=== PATIENT | male | born 1955 | race Caucasian/White ===

== ENCOUNTER 2016-11-25 17:18 | Emergency (ER) | payer MEDICAID, OTHER ==
[2016-11-25 17:31] VITALS: RESP 20
[2016-11-25] MEDS ORDERED: KETOROLAC 30 MG/1 ML SDV IM ONE (17:38)
--- NOTE | 2016-11-25 17:47 | EDPHY ---
H & P Time Seen by Provider: 11/25/16 17:26 HPI/ROS: HPI Back pain, sciatica. 61-year-old male by private vehicle. He complains of right and left-sided lower back pain with radiation down the posterior lateral aspect of his thighs ongoing for 3 weeks. She reports the right side is worse on the left side. He has a lidocaine patch over his right SI joint. He denies any history of fall or other traumatic event. He is asking for pain medication. He has had no bowel or bladder incontinence. No fever. No history of malignancy. He denies abdominal pain. He states that his lower extremities feels stiff and weak because of the pain when he is trying to walk. He tells me that he has an appointment to see his primary care physician at [facility] on Tuesday. He also states he started a new job and has a [employer] insurance plan which is supposed to start in the next 1-2 weeks. He is asking for narcotic pain medication. ROS: Constitutional: No fever, no chills. No weakness. Respiratory: No cough. No shortness of breath. Cardiac: No chest pain, no palpitations. Gastrointestinal: No abdominal pain, no vomiting, no diarrhea. Genitourinary: As above. Musculoskeletal: As above. No neck pain. No myalgias or arthralgias. Skin: No rashes. Neurological: As above. Past medical history: Cervical spine fusion and history of L4 disc herniation years ago. Social history: Nonsmoker. Denies alcohol. Here by himself. Physical Exam: General Appearance: Alert, mildly anxious. This patient is responding to questions appropriately and in full sentences. This patient appears well- hydrated and well-nourished. Eyes: Pupils equal and round no pallor or injection. No lid edema, erythema or injection. Back exam: No midline cervical, thoracic, lumbar tenderness on palpation. His motor sensory function is normal in all myotomes in dermatomes of the bilateral lower extremities. Extension and flexion motor testing of his feet are symmetrical and normal. His quadriceps strength and proximal thigh musculature is symmetrical and normal on exam. He has a negative same side and cross side straight leg raise test. Gastrointestinal: Abdomen is soft and nontender, no masses, bowel sounds normal. No focal tenderness at McBurney's point. No Victor sign. Neurological: Motor sensory function is grossly intact. Cranial nerves are normal. Gait is normal. Skin: Warm and dry, no rashes. Musculoskeletal: Neck is supple and nontender. Extremities are symmetrical. All joints range without pain or impingement. Psychiatric: No agitation. No depression. Database: EKG: Imaging: Procedures: Emergency department course: His vital signs were reviewed. He was tachycardic and moderately hypertensive in triage. He has no history of renal dysfunction or contraindications to NSAIDs. He is driving. He was given 60 mg of IM Toradol. 6:15 p.m., patient re-evaluated. He states he is feeling much better. His tachycardia has resolved on my exam. Repeat neurologic Assessment is nonfocal. He is dressed and sitting upright on the gurney. He is requesting discharge at this time. I offered him further observation in the emergency department but he declined. Plan for follow-up will be through [facility] or through his [place] primary care physician. I do not feel he requires emergent imaging at this time. However, I discussed red flags for him to be aware of. He feels comfortable going home. I will prescribe a short course of Vicodin, 10. As well as some Flexeril. Follow-up was reviewed with him thoroughly. Return to emergency department precautions discussed. All of his questions were answered. He was discharged from the emergency department in good condition. Differential Diagnosis: The differential diagnosis on this patient includes but is not limited to sacroiliac strain, sciatica. Epidural compression syndrome, acute radiculopathy , cauda equina syndrome, epidural abscess, AAA unlikely. This represents a partial list of diagnoses considered. These considerations are based on history , physical exam, past history, reassessment and diagnostic testing. Smoking Status: Current every day smoker Constitutional: Initial Vital Signs Temperature (C) 36.5 C 11/25/16 17:29 Heart Rate 111 H 11/25/16 17:29 Respiratory Rate 20 11/25/16 17:29 Blood Pressure 153/124 H 11/25/16 17:29 O2 Sat (%) 96 11/25/16 17:29 O2 Delivery Mode Room Air Allergies/Adverse Reactions: No Known Allergies Allergy (Unverified 11/25/16 17:29) Home Medications: Medication Instructions Recorded Miscellaneous Medical Supply [NO 10/06/12 HOME MEDS] Cyclobenzaprine [Flexeril 10 MG 10 mg PO TID #9 tab 07/27/17 (*)] Hydrocodone/APAP 5/325 [[place] 1 - 2 tab PO Q4-6PRN PRN #10 tab 11/25/16 5/325 (*)] Medical Decision Making - Data Points Medications Given: Discontinued Medications Ketorolac Tromethamine (Toradol) 60 mg IM EDNOW ONE Stop: 11/25/16 17:39 Last Admin: 11/25/16 17:46 Dose: 60 mg Departure - Departure Disposition: Home, Routine, Self-Care Clinical Impression: Back pain, Sciatica Condition: Good Instructions: Sciatica (ED) Additional Instructions: Read and follow provided instructions. Follow-up with your primary care physician as scheduled on Tuesday. I have also given you a referral to [facility] for follow-up. They are nonsurgical back pain specialists. Take medication as prescribed only. Ibuprofen dosin mg every 6 hours with meals for the next 3 days only. You can start taking ibuprofen again tomorrow morning. Do not take until that time. [place]/Percocet dosin-2 every 4-6 [address] for [address] Do not drive on this medication. Return to the emergency department immediately for worsening pain, loss of sensation or weakness in your lower extremities, bowel or bladder incontinence, abdominal pain, fever or other serious concerns. Referrals: Abraham STUART [Primary Care Provider] - As per Instructions [facility] [Outside] - As per Instructions Prescriptions: Cyclobenzaprine [Flexeril 10 MG (*)] 10 mg PO TID #9 tab Hydrocodone/APAP 5/325 [[place] 5/325 (*)] 1 - 2 tab PO Q4-6PRN PRN #10 tab PRN Reason: Pain, Moderate
[2016-11-25 18:29] VITALS: BP 143/107; PULSE 108; TEMP 97.9; O2SAT 95
== END 2016-11-25 18:29 | disposition home or self-care (01) ==
LOC: CED 17:18
DX: M54.40 Lumbago with sciatica, unspecified side (principal); F17.200 Nicotine dependence, unspecified, uncomplicated
CPT/HCPCS: J1885